=== PATIENT | female | born 1975 | race Caucasian/White ===

== ENCOUNTER → 2023-01-22 23:55 | Outpatient (CLI) | payer BC, SELFPAY ==
[2023-01-22 19:31] LABS: Basophils % 0.4 % (0.1-2.0); Eosinophils # 0.1 K/mm3 (0.0-0.4); Hematocrit 41.3 % (37.0-47.0); Hemoglobin 13.1 g/dL (12.2-16.2); Lymphocytes # 1.7 K/mm3 (0.7-4.5); Mean Corpuscular HGB Conc 31.8 g/dL (31.8-35.4); Mean Corpuscular Hemoglobin 27.7 pg (27.0-31.2); Mean Corpuscular Volume 87.2 fl (81-99); Mean Platelet Volume 9.3 fl (7.4-10.4); Monocytes # 0.3 K/mm3 (0.1-1.0); Monocytes % 5.1 % (1.7-9.3); Neutrophils # 4.6 K/mm3 (1.8-7.8); Neutrophils % 68.6 % (37.0-80.0); Platelet Count 219 K/mm3 (142-424); Red Blood Count 4.73 M/mm3 (4.20-5.40); Red Cell Distribution Width 16.6 % (11.5-17.5); White Blood Count 6.8 K/mm3 (4.8-10.8)
[2023-01-22 19:34] LABS: Alanine Aminotransferase 52 U/L (12-78); Albumin Level 4.1 g/dl (3.5-5.0); Albumin/Globulin Ratio 1.5 (1.1-1.8); Alkaline Phosphatase 113 U/L (38-126); Anion Gap 14.2 mEq/L (5-15); Aspartate Amino Transferase 50 U/L (14-36); Bilirubin,Total 0.5 mg/dl (0.2-1.3); Blood Urea Nitrogen 11 mg/dl (7-17); Calcium 9.1 mg/dl (8.4-10.2); Carbon Dioxide 26 mmol/L (22.0-30.0); Chloride 105 mmol/L (98-107); Chol/HDL Ratio 2.4 (1-3.5); Cholesterol 146 mg/dl (140-200); Estimated Glomerular Filt Rate 90 ml/min (>60); GFR (African American) 109 ML/MIN (>60); Globulin 2.7 g/dL (1.3-3.2); Glucose 121 mg/dl (74-100); HDL Cholesterol 62 mg/dl (40-60); Potassium 4.2 mmoL/L (3.5-5.1); Sodium 141 mmol/L (136-145); Total Protein,Serum 6.8 g/dl (6.3-8.2); Triglycerides 136 mg/dl (30-150); VLDL Cholesterol 27 mg/dL (0-40)
[2023-01-22 19:45] LABS: Direct LDL Cholesterol 64.66 mg/dL (100-129)
[2023-01-22 19:51] LABS: 25-OH Vitamin D, Total 65.4 ng/mL (30-100)
[2023-01-22 20:05] LABS: Thyroid Stimulating Hormone 3.11 uIU/mL (0.465-4.68)
[2023-01-22 20:23] LABS: Vitamin B12 875 pg/mL (239-931)
[2023-01-22 22:00] LABS: Hemoglobin A1C 6.2 % (4.0-6.0)
== END ==
PROVIDERS: PCP Nurse Practitioner; Visit Provider Nurse Practitioner
DX: E53.8 Deficiency of other specified B group vitamins (principal); E55.9 Vitamin D deficiency, unspecified; E78.5 Hyperlipidemia, unspecified; K21.9 Gastro-esophageal reflux disease without esophagitis; F41.8 Other specified anxiety disorders; Z86.711 Personal history of pulmonary embolism
CPT/HCPCS: 80053; 80061; 82306; 82607; 83036; 84443; 85025

== ENCOUNTER 2023-07-16 21:22 | Outpatient (CLI) | payer BC, SELFPAY ==
[2023-07-16 19:27] LABS: Hemoglobin A1C 6.1 % (4.0-6.0)
[2023-07-16 19:51] LABS: 25-OH Vitamin D, Total 59.9 ng/mL (30-100)
[2023-07-16 20:12] LABS: Anion Gap 11.2 mEq/L (5-15); Blood Urea Nitrogen 12 mg/dl (7-17); Carbon Dioxide 26 mmol/L (22.0-30.0); Chloride 108 mmol/L (98-107); Estimated Glomerular Filt Rate 90 ml/min (>60); Potassium 4.2 mmoL/L (3.5-5.1); Sodium 141 mmol/L (136-145)
[2023-07-16 20:13] LABS: Alanine Aminotransferase 47 U/L (12-78); Albumin Level 4.1 g/dl (3.5-5.0); Albumin/Globulin Ratio 1.7 (1.1-1.8); Alkaline Phosphatase 103 U/L (38-126); Aspartate Amino Transferase 49 U/L (14-36); Bilirubin,Total 0.6 mg/dl (0.2-1.3); Chol/HDL Ratio 2.8 (1-3.5); Cholesterol 143 mg/dl (140-200); GFR (African American) 109 ML/MIN (>60); Globulin 2.4 g/dL (1.3-3.2); Glucose 114 mg/dl (74-100); HDL Cholesterol 52 mg/dl (40-60); Total Protein,Serum 6.5 g/dl (6.3-8.2); Triglycerides 120 mg/dl (30-150); VLDL Cholesterol 24 mg/dL (0-40)
[2023-07-16 20:24] LABS: Direct LDL Cholesterol 69.38 mg/dL (100-129)
[2023-07-16 21:05] LABS: Vitamin B12 908 pg/mL (239-931)
[2023-07-16 22:36] LABS: Microalbumin/Creatinine Ratio 5.8
[2023-07-16 22:37] LABS: Creatinine,Urine Random 245 mg/dL (Not Estab.)
== END 2023-07-16 23:59 ==
LOC: LAB.DROPOF 21:22
PROVIDERS: PCP Nurse Practitioner; Visit Provider Nurse Practitioner
DX: R73.01 Impaired fasting glucose (principal); E78.5 Hyperlipidemia, unspecified; E53.8 Deficiency of other specified B group vitamins; E55.9 Vitamin D deficiency, unspecified; K21.9 Gastro-esophageal reflux disease without esophagitis
CPT/HCPCS: 80053; 80061; 82043; 82306; 82570; 82607; 83036

== ENCOUNTER 2023-11-30 11:48 | Emergency (ER) | payer BC, SELFPAY ==
[2023-11-30 12:00] VITALS: BP 167/93; PULSE 80; RESP 18; TEMP 36.6; O2SAT 100; BMI 43.7
--- NOTE | 2023-11-30 12:04 | XR_ITS ---
PROCEDURE INFORMATION: Exam: XR Soft Tissue Neck Exam date and time: 11/30/2023 12:06 PM Age: 48 years old Clinical indication: Other: Feels like something stuck in throat TECHNIQUE: Imaging protocol: Radiologic exam of the soft tissues of the neck. COMPARISON: CR Acute Abdomen 30/11/2023 12:05 FINDINGS: Airway: The hypopharynx is widely patent. The upper trachea is patent. Soft tissues: The prevertebral soft tissues are not thickened. No radiopaque foreign body is identified. Bones/joints: There is normal anatomic alignment of the cervical spine. Lungs: There is an old calcified granuloma in the right upper lobe. IMPRESSION: Unremarkable neck soft tissues. No radiopaque foreign body is visualized.
--- NOTE | 2023-11-30 12:05 | XR_ITS ---
PROCEDURE INFORMATION: Exam: XR Complete Acute Abdomen Series Including Chest Exam date and time: 11/30/2023 12:05 PM Age: 48 years old Clinical indication: Abdominal pain; Generalized TECHNIQUE: Imaging protocol: Radiologic exam. Complete acute abdomen series, including 2 or more views of the abdomen and a single view chest. COMPARISON: No relevant prior studies available. FINDINGS: Lungs: There is an old calcified granuloma in the right upper lobe. The lungs are otherwise clear. Pleural spaces: No pleural effusions or evidence of a pneumothorax. Heart/Mediastinum: Heart and mediastinum are normal in size and configuration. Gastrointestinal tract: There is a nonobstructed bowel-gas pattern. Intraperitoneal space: There are surgical clips in the right lower quadrant. No visible intra-abdominal free air. Bones/joints: No acute osseous lesions are identified. Soft tissues: Normal. IMPRESSION: 1. Unremarkable, nonobstructive bowel gas pattern. 2. No radiographic evidence of acute cardiopulmonary disease.
--- NOTE | 2023-11-30 12:23 | EXP.UTC ---
Discharge Plan Disposition Patient Disposition: Home, Self-Care Condition: Good Prescriptions Prescriptions: New sucralfate [Carafate] 100 mg/mL suspension 10 ml PO QID 7 Days Qty: 280 0RF Rx Instructions: swish in mouth and swallow; use after food/drink No Action Eliquis 2.5 mg tablet See Rx Instructions .ROUTE .COMPLEX Qty: 180 1RF Dose Instruction: TAKE 1 TABLET BY MOUTH TWICE A DAY Rx Instructions: TAKE 1 TABLET BY MOUTH TWICE A DAY cholecalciferol (vitamin D3) 125 mcg (5,000 unit) capsule See Rx Instructions .ROUTE .COMPLEX Qty: 90 1RF Dose Instruction: TAKE 1 CAPSULE ORALLY DAILY Rx Instructions: TAKE 1 CAPSULE ORALLY DAILY cyanocobalamin (vitamin B-12) 1,000 mcg tablet See Rx Instructions .ROUTE .COMPLEX Qty: 30 5RF Dose Instruction: TAKE 1 TABLET ORALLY DAILY Rx Instructions: TAKE 1 TABLET ORALLY DAILY folic acid 1 mg tablet See Rx Instructions .ROUTE .COMPLEX Qty: 90 1RF Dose Instruction: TAKE 1 TABLET BY MOUTH EVERY DAY Rx Instructions: TAKE 1 TABLET BY MOUTH EVERY DAY omeprazole 40 mg capsule,delayed release(DR/EC) See Rx Instructions .ROUTE .COMPLEX Qty: 90 1RF Dose Instruction: TAKE 1 CAPSULE ORALLY DAILY Rx Instructions: TAKE 1 CAPSULE ORALLY DAILY rosuvastatin 10 mg tablet See Rx Instructions .ROUTE .COMPLEX Qty: 90 1RF Dose Instruction: TAKE 1 TABLET ORALLY DAILY Rx Instructions: TAKE 1 TABLET ORALLY DAILY sertraline 100 mg tablet See Rx Instructions .ROUTE .COMPLEX Qty: 90 1RF Dose Instruction: TAKE 1 TABLET BY MOUTH EVERY DAY FOR 90 DAYS Rx Instructions: TAKE 1 TABLET BY MOUTH EVERY DAY FOR 90 DAYS methotrexate sodium 2.5 mg tablet 20 mg PO WEEKLY Qty: 32 5RF Referrals Follow up/Referrals: Georgia Jalloh APRN [Primary Care Provider] - See instructions Activity Restrictions/Add. Instructions Additional Instructions/Restrictions: Drink plenty of fluids. Take the medications as directed. Follow up with your regular doctor. GO TO THE ER FOR ANY WORSENING SYMPTOMS Instructions Patient Instructions: Sucralfate, DI for Esophagitis Discharge ED Provider: Crispin Mojica [facility] HPI General Stated complaint: feels like object lodged in stomach Mode of Arrival: Ambulatory Source of Information: Patient Limitations: No Limitations Time Seen by Provider: 11/30/23 12:22 Description of Symptoms (Recalled from Triage Doc. by RN): Pt's symptoms are feels like something is stuck in her throat and top of stomach . She denies choking on anything. HEENT Symptoms (Recalled from RN notes): Yes Resp Symptoms (Recalled from RN notes): No Skin Symptoms (Recalled from RN notes): No MS Symptoms (Recalled from RN notes): No Functional Status (Recalled from RN notes): n/a History of Present Illness Provider Complaint: She states that she has been having a feeling of something stuck in her throat and at the top of her stomach. She denies difficulty swallowing. She states that she was not eating when she began having the feeling. Related Data Previous Rx's Medication Instructions Recorded methotrexate sodium 2.5 mg tablet 20 mg (8 x 2.5 mg) PO WEEKLY #32 03/06/22 tabs apixaban 2.5 mg tablet (Eliquis) See Rx Instructions .Route 07/16/23 .COMPLEX #180 tabs cholecalciferol (vitamin D3) 125 See Rx Instructions .Route 07/16/23 mcg (5,000 unit) capsule .COMPLEX #90 caps cyanocobalamin (vitamin B-12) See Rx Instructions .Route 07/16/23 1,000 mcg tablet .COMPLEX #30 tabs folic acid 1 mg tablet See Rx Instructions .Route 07/16/23 .COMPLEX #90 tabs omeprazole 40 mg capsule,delayed See Rx Instructions .Route 07/16/23 release .COMPLEX #90 caps rosuvastatin 10 mg tablet See Rx Instructions .Route 07/16/23 .COMPLEX #90 tabs sertraline 100 mg tablet See Rx Instructions .Route 07/16/23 .COMPLEX #90 tabs sucralfate 100 mg/mL oral 10 ml PO QID 7 days #280 mL 11/30/23 suspension (Carafate) Allergies Allergy/AdvReac Type Severity Reaction Status Date / Time No Known Allergies Allergy Verified 11/30/23 12:08 Worker's Comp Is this a Worker's Comp case?: No [facility] Disclaimer: The information contained in this section may have been updated after the patient was seen, as this information can be updated by other users. Medical History IFG (impaired fasting glucose) Obesity Depression with anxiety History of pulmonary embolism GERD (gastroesophageal reflux disease) Hyperlipidemia Vitamin D deficiency Vitamin B12 deficiency Social History Smoking Status: Never smoker alcohol intake: never substance use type: denies use current occupational status: employed Travel in the last 8 weeks: None ROS Obtained: Yes All systems reviewed & no additional complaints except as documented Constitutional Constitutional: Denies chills and Denies fever(s) Eyes Eyes: Denies eye discharge ENT Ears, Nose, Mouth, and Throat: Denies dizziness, Denies otalgia and Denies sore throat Cardiovascular Cardiovascular: Denies chest pain Respiratory Respiratory: Denies shortness of breath, Denies chest congestion, Denies cough, Denies stridor and Denies wheezing Gastrointestinal Gastrointestingal: Denies nausea or vomiting Musculoskeletal Musculoskeletal: Reports system reviewed and no additional complaints, except as documented and Denies arthralgias Integumentary/Breasts Skin/Breast: Denies rash Neurologic Neurologic: Denies dizziness and Denies paresthesias Allergic/Immunologic Allergic/Immunologic: Denies wheezing Physical Exam General General appearance: alert and in no apparent distress Head Head exam: atraumatic, normocephalic and normal inspection Eye Eye exam: Present normal appearance, PERRL and EOMI ENT ENT exam: Present normal exam, normal oropharynx, mucous membranes moist, TM's normal bilaterally and normal external ear exam Neck Neck exam: Present normal inspection, full ROM and trachea midline; Absent meningismus or lymphadenopathy Chest Chest inspection: Present normal inspection and symmetric chest wall rise; Absent tenderness Respiratory Respiratory exam: Present normal lung sounds bilaterally; Absent respiratory distress Cardiovascular Cardiovascular exam: Present regular rate and normal rhythm; Absent JVD Abdominal Exam Abdominal exam: Present soft and normal bowel sounds; Absent distention, tenderness or guarding Extremities Exam Extremities exam: Present normal inspection, full ROM and normal capillary refill; Absent calf tenderness Back Exam Back exam: Present normal inspection; Absent tenderness Neurological Exam Neurological exam: Present alert and oriented X3 Psychiatric Psychiatric exam: Present normal affect and normal mood Skin Skin exam: Present warm, dry, intact and normal color Lymphatic Lymphatic Findings: no adenopathy Medical Decision Making Medical Records Medical records reviewed: No I reviewed the patient's medical records. [place] Inquiry Pt receiving controlled substance: No Vital Signs: 11/30/23 12:00 Temperature 97.9 F Temperature Source Oral Pulse Rate [Right Radial] 80 Respiratory Rate 18 Blood Pressure [Right Arm] 167/93 H Blood Pressure Mean [Right Arm] 117 Blood Pressure Source [Right Arm] Automatic Cuff Blood Pressure Position [Right Arm] Sitting 02 Sat by Pulse Oximetry 100 Oxygen Delivery Method Room Air Orders (Tests/Meds): ORDERS Category Date Time Status Acute abdomen XR series [XR acute abdomen series] Stat Exams 11/30/23 12:05 Taken XR soft tissue neck Stat Exams 11/30/23 12:04 Taken
[2023-11-30 12:51] VITALS: BP 167/93; PULSE 80; RESP 18; TEMP 36.6; O2SAT 100
== END 2023-11-30 12:51 | disposition home or self-care (01) ==
PROVIDERS: Emergency Provider Nurse Practitioner Family; PCP Nurse Practitioner
DX: K20.90 Esophagitis, unspecified without bleeding (principal)
CPT/HCPCS: 70360; 74021; 99204; 99212; G0463

== ENCOUNTER 2023-12-01 14:04 | Outpatient (CLI) | payer BC, SELFPAY ==
[2023-12-01 14:40] LABS: Basophils # 0.1 K/mm3 (0-0.2); Basophils % 0.6 % (0.1-2.0); Eosinophils # 0.1 K/mm3 (0.0-0.4); Eosinophils % 0.8 % (0.1-12.0); Hematocrit 41.4 % (37.0-47.0); Hemoglobin 13.5 g/dL (12.2-16.2); Lymphocytes # 2.1 K/mm3 (0.7-4.5); Lymphocytes % 21.5 % (10-50); Mean Corpuscular HGB Conc 32.5 g/dL (31.8-35.4); Mean Corpuscular Hemoglobin 27.6 pg (27.0-31.2); Mean Platelet Volume 7.6 fl (7.4-10.4); Monocytes # 0.5 K/mm3 (0.1-1.0); Monocytes % 5.3 % (1.7-9.3); Neutrophils # 7.1 K/mm3 (1.8-7.8); Neutrophils % 71.9 % (37.0-80.0); Platelet Count 203 K/mm3 (142-424); Red Blood Count 4.87 M/mm3 (4.20-5.40); Red Cell Distribution Width 16.4 % (11.5-17.5); White Blood Count 9.9 K/mm3 (4.8-10.8)
[2023-12-01 14:57] LABS: Chloride 106 mmol/L (98-107); Sodium 140 mmol/L (136-145)
[2023-12-01 14:58] LABS: Potassium 3.9 mmoL/L (3.5-5.1)
[2023-12-01 15:00] LABS: Alanine Aminotransferase 30 U/L (12-78); Alkaline Phosphatase 105 U/L (38-126); Amylase 36 U/L (30-110); Anion Gap 11.9 mEq/L (5-15); Aspartate Amino Transferase 27 U/L (14-36); Bilirubin,Total 0.6 mg/dl (0.2-1.3); Blood Urea Nitrogen 9 mg/dl (7-17); Calcium 9.6 mg/dl (8.4-10.2); Carbon Dioxide 26 mmol/L (22.0-30.0); Estimated Glomerular Filt Rate 77 ml/min (>60); GFR (African American) 93 ML/MIN (>60); Glucose 126 mg/dl (74-100)
[2023-12-01 15:01] LABS: Albumin Level 4.2 g/dl (3.5-5.0); Albumin/Globulin Ratio 1.6 (1.1-1.8); Globulin 2.6 g/dL (1.3-3.2); Lipase 76 U/L (23-300); Total Protein,Serum 6.8 g/dl (6.3-8.2)
[2023-12-02 13:14] LABS: H. pylori Breath Test Negative (Negative)
== END 2023-12-01 23:59 | disposition home or self-care (01) ==
LOC: LAB 14:05
PROVIDERS: PCP Nurse Practitioner; Visit Provider Nurse Practitioner
DX: R13.10 Dysphagia, unspecified (principal); R10.13 Epigastric pain
CPT/HCPCS: 36415; 80053; 82150; 83013; 83690; 85025

== ENCOUNTER 2023-12-22 08:54 | Outpatient (CLI) | payer BC, SELFPAY ==
--- NOTE | 2023-12-22 08:59 | FL_ITS ---
FINAL REPORT CLINICAL HISTORY: dysphagia ft 2:49 dap 5819.29 FINDINGS: UPPER GI WITH SBFT HISTORY: Dysphagia. Right upper quadrant pain. PROCEDURE: The patient ingested barium. Effervescent crystals were also administered. Spot and overhead films were obtained. Additional barium was administered for a SBFT. Fluoro time: 2 minutes 49 seconds DAP: 5819.29 uGy.m2 FINDINGS: UGI: The esophagus is normal. There is a small sliding type hiatal hernia. There is no gastroesophageal reflux. A 13 mm barium tablet passes through the esophagus and into the stomach without delay. Peristalsis is normal. The rugal fold pattern of the stomach is normal. The duodenal bulb is normal. SBFT: The repair service dispatcher film is normal. There is no evidence of obstruction. The mucosal fold pattern is normal. The terminal ilium is normal. IMPRESSION: Small sliding-type hiatal hernia. Normal SBFT. Films reviewed , interpreted and dictated by Dr. Mackey. Transcribed by Micah Cortez PA-C. Reviewed, Interpreted and Dictated by Hernan aMckey MD Transcribed by TYLER Gonzalez Authenticated and [facility]
[2023-12-22] MEDS: BARIUM SULFATE(LIQUID E-Z-PAQUE);355ML BOTTLE 355 ML PO (09:40)
[2023-12-22] MEDS: BARIUM SULFATE (E-Z-HD 340GM);135ML BOTTLE 135 ML PO (09:40)
[2023-12-22] MEDS: E-Z-GASII EFFERVESCENT GRANULES;1PK 1 EACH PO (09:40)
== END 2023-12-22 23:59 | disposition home or self-care (01) ==
LOC: RAD 08:55
PROVIDERS: PCP Nurse Practitioner; Visit Provider Nurse Practitioner
DX: R13.10 Dysphagia, unspecified (principal)
CPT/HCPCS: 74246; 74248

== ENCOUNTER 2024-03-12 07:30 | Day surgery (SDC) | payer BC, SELFPAY ==
[2024-03-11 12:45] VITALS: BMI 42.9
[2024-03-12 07:51] VITALS: BP 148/91; PULSE 84; RESP 18; TEMP 36.3; O2SAT 95
--- NOTE | 2024-03-12 07:52 | P.PCN_ITS ---
Procedure: Date: 03/12/24 Patient Date of :: 1975 Procedure Performed:: Esophagogastroduodenoscopy with biopsies Indications:: Patient presents for upper endoscopy. She is a 48-year-old female with a his tory of GERD, hyperlipidemia, history of pulmonary embolism on Eliquis, BMI 43, referred by Georgia Jalloh for upper endoscopy. She describes a history of symptoms of cervical dysphagia stating that when she swallows something it feels like he gets stuck in her throat. She had been having postprandial epigastric and right upper quadrant pain. She underwent neck and chest x-ray which are unremarkable. She is on pantoprazole. She was sent for surgical consultation for EGD. She had undergone upper GI with small bowel follow-through on 12/22/2023 and this revealed only a small sliding hiatal hernia. She has had some improvement in her symptoms. Since she has been seen in the office she has been started on semaglutide for weight loss. Performing Provider:: Nikko Du MD Referring Provider:: Georgia Jalloh Sedation:: MAC sedation Procedure:: Patient history was obtained and appropriate physical examination was performed. Patient's medications and allergies were reviewed. Informed consent was obtained after explaining the benefits, alternatives, and risks of the procedure including, but not limited to, bleeding, perforation, missed lesions, and adverse reaction to anesthesia medications. Patient was transported to endoscopy procedure room. Patient was connected to monitoring devices. Throughout the procedure the patient's blood pressure, pulse, and oxygen saturations were monitored continuously. Patient identification and planned procedure were verified by the staff. Patient was positioned in lateral decubitus position. Olympus endoscope was inserted via the oropharynx. Esophagus was cannulated. There was no evidence of any significant cricopharyngeal spasm. Endoscope was advanced. There is minor tortuosity to the esophagus. Gastroesophageal junction was encountered at 38 cm. Stomach was cannulated and insufflated. Retroflexion revealed a tiny, less than 2 cm, sliding hiatal hernia. There were multiple gastric polyps consistent with fundic gland polyps. A couple of the larger ones were ultimately removed with biopsy forceps for sampling. There was some linear gastropathy within the antrum. Pylorus was traversed. Duodenum appeared normal. Endoscope was withdrawn into the distal stomach. Gastric biopsy was obtained. At this time a couple of the gastric polyps were removed with biopsy forceps for sampling. A couple of biopsies were obtained at the gastroesophageal junction. Biopsy was obtained at the distal esophagus to evaluate for microscopic esophagitis. Endoscope was withdrawn. . Findings:: Minor tortuosity to the esophagus consistent with minimal esophageal dysmotility Gastroesophageal junction at 38 cm Tiny sliding hiatal hernia Linear gastropathy Multiple probable fundic gland polyps Recommendations:: Treat expectantly based on histopathology. Complications:: None immediately apparent Estimated blood obtained (mL): 2 Colonoscopy Component Colonoscopy Component Was a colonoscopy performed during today's procedure?: No
[2024-03-12] MEDS: LACTATED RINGERS 1000ML 1,000 ML 25 ML IV (07:59)
[2024-03-12 08:09] VITALS: O2SAT 98
[2024-03-12 08:30] VITALS: BP 147/83; PULSE 80; RESP 14; TEMP 37.2; O2SAT 91
[2024-03-12 08:40] VITALS: BP 153/94; PULSE 82; RESP 16; O2SAT 90
[2024-03-12 08:50] VITALS: BP 152/85; PULSE 78; RESP 16; O2SAT 93
[2024-03-12 09:00] VITALS: BP 135/88; PULSE 82; RESP 16; O2SAT 93
--- NOTE | 2024-03-12 11:23 | EXP.ANES.CKL ---
[facility] Disclaimer: The information contained in this section may have been updated after the patient was seen, as this information can be updated by other users. Medical History Elevated BP without diagnosis of hypertension Epigastric pain Dysphagia IFG (impaired fasting glucose) Obesity Depression with anxiety History of pulmonary embolism GERD (gastroesophageal reflux disease) Hyperlipidemia Vitamin D deficiency Vitamin B12 deficiency Surgical History History of appendectomy History of tubal ligation History of hysterectomy Family History Other Family history of diabetes mellitus Social History Smoking Status: Never smoker alcohol intake: never substance use type: denies use current occupational status: employed Travel in the last 8 weeks: None caffeine: Yes [facility] Anesthesia Checklist Patient Identification Patient Identification: Arm Band and Family Structural Data Admitted From: Home Planned Operative Procedure/s: EGD Consent for Planned Operative Procedure(s) Verified: Yes Verified Documents: Surgical Consent and History and Physical NPO Status Verified Time NPO: 00:00 Additional verifications Patient : No Anesthesia Reactions: No Hx Blood Transfusions: No Blood Transfusion Reaction: No Cephalosporin Allergy: No Previous Colonoscopy: Yes Airway Assessment Mallampati Score:: Class II C-Spine Mobility Assessed: Yes TMJ Mobility Assessed: Yes Dentition: Good Dentition Neurological Assessment Level of Consciousness: Awake, Alert, Appropriate and Follows Commands Hx Seizures: No Numbness or tingling in extremities: No Anesthesia Plan Anesthesia Risk discussed: Yes ASA Class: III Anesthesia Type: MAC
== END 2024-03-12 09:02 | disposition home or self-care (01) ==
PROVIDERS: PCP Nurse Practitioner; Visit Provider Surgery
PROC: 0DJ08ZZ Inspection of Upper Intestinal Tract, Via Natural or Artificial Opening Endoscopic (ICD-10-PCS; CPT 43235; principal; 2024-03-12 08:30)
DX: R13.10 Dysphagia, unspecified (principal); K44.9 Diaphragmatic hernia without obstruction or gangrene; K31.9 Disease of stomach and duodenum, unspecified; K31.7 Polyp of stomach and duodenum
CPT/HCPCS: 43239; J7120

== ENCOUNTER 2025-03-28 11:45 | Outpatient (CLI) | payer OTHER, SELFPAY ==
[2025-03-28 16:18] LABS: Hematocrit 43.1 % (37.0-47.0); Hemoglobin 13.3 g/dL (12.2-16.2); Immature Granulocytes % 0.3 %; Mean Corpuscular HGB Conc 30.9 g/dL (31.8-35.4); Mean Corpuscular Hemoglobin 25.6 pg (27.0-31.2); Mean Corpuscular Volume 82.9 fl (81-99); Nucleated Red Blood Cells % 0 %; Platelet Count 220 K/mm3 (142-424); Red Blood Count 5.20 M/mm3 (4.20-5.40); Red Cell Distribution Width-SD 44.4 fL; White Blood Count 6.3 K/mm3 (4.8-10.8)
[2025-03-28 17:39] LABS: Alanine Aminotransferase 37 U/L (12-78); Albumin Level 3.4 g/dl (3.5-5.0); Albumin/Globulin Ratio 1.1 (1.1-1.8); Alkaline Phosphatase 126 U/L (38-126); Anion Gap 9.3 mEq/L (5-15); Aspartate Amino Transferase 37 U/L (14-36); Bilirubin,Total 0.7 mg/dl (0.2-1.3); Blood Urea Nitrogen 11 mg/dl (7-17); Calcium 9.1 mg/dl (8.4-10.2); Carbon Dioxide 26 mmol/L (22.0-30.0); Chloride 104 mmol/L (98-107); Cholesterol 214 mg/dl (140-200); Creatinine,Serum 0.80 mg/dl (0.52-1.04); Estimated Glomerular Filt Rate 76 ml/min (>60); GFR (African American) 92 ML/MIN (>60); Globulin 3.1 g/dL (1.3-3.2); Glucose 105 mg/dl (74-100); HDL Cholesterol 55 mg/dl (40-60); Potassium 4.3 mmoL/L (3.5-5.1); Sodium 135 mmol/L (136-145); Total Protein,Serum 6.5 g/dl (6.3-8.2); Triglycerides 117 mg/dl (30-150)
[2025-03-28 17:51] LABS: 25-OH Vitamin D, Total 33.1 ng/mL (30-100)
[2025-03-28 18:11] LABS: Thyroid Stimulating Hormone 1.93 uIU/mL (0.465-4.68)
[2025-03-28 18:30] LABS: Vitamin B12 394 pg/mL (239-931)
[2025-03-28 18:34] LABS: Hepatitis C Ab Qual. W/ RFX NEGATIVE (Negative)
[2025-03-29 04:18] LABS: Hemoglobin A1C 6.3 % (4.0-6.0)
[2025-03-29 05:09] LABS: Hepatitis B Surface Antigen Negative (Negative)
== END 2025-03-28 23:59 ==
LOC: LAB.DROPOF 03-29 11:18
PROVIDERS: PCP Nurse Practitioner; Visit Provider Nurse Practitioner
DX: E55.9 Vitamin D deficiency, unspecified (principal); Z11.59 Encounter for screening for other viral diseases; I10 Essential (primary) hypertension; K21.9 Gastro-esophageal reflux disease without esophagitis; E78.5 Hyperlipidemia, unspecified; R73.01 Impaired fasting glucose; E53.8 Deficiency of other specified B group vitamins
CPT/HCPCS: 80053; 80061; 82043; 82306; 82570; 82607; 83036; 84443; 85025; 86803; 87340; 87389